=== PATIENT | female | born 1960 | race Caucasian/White ===

== ENCOUNTER → 2016-05-24 | Outpatient (CLI) | payer OTHER ==
--- NOTE | 2016-05-28 10:50 | US ---
Ultrasound left ankle History: Soft tissue mass left ankle. Previous trauma with bruising. Findings: The patient was originally evaluated on May 24, 2016 then returned on May 26, 2016 for evaluation with direct radiologist supervision. The Palpable nodule lateral left ankle about 4 cm above the lateral malleolus confirms a hypoechoic lesion that measures 4.5 x 3 x 2.5 mm. This is positioned in in the subcutaneous fat and separate from the peroneus longus and brevis muscle and tendon and separate from the underlying bone. There is no evidence of shadowing or internal color flow enhancement. Impression: 1. Heterogeneous hypoechoic lesion in the subcutaneous fat lateral to the distal left fibular shaft about 4 cm above the lateral malleolus. This probably represents small residual persistent hematoma. This could less likely represent neuroma of a superficial nerve branch. Clinical followup recommended. The results of this study were reviewed with the patient. JODIE
== END ==
LOC: BMCIMAGING 14:50
PROVIDERS: ATTEND Podiatrist Foot & Ankle Surgery
DX: M79.9 Soft tissue disorder, unspecified (principal)

== ENCOUNTER → 2016-05-26 | Outpatient (CLI) | payer OTHER ==
--- NOTE | 2016-05-26 11:17 | US ---
Ultrasound left ankle History: Soft tissue mass left ankle. Previous trauma with bruising. Findings: The patient was originally evaluated on May 24, 2016 then returned on May 26, 2016 f or evaluation with direct radiologist supervision. The Palpable nodule lateral left ankle about 4 cm above the lateral malleolus confirms a hypoechoic l esion that measures 4.5 x 3 x 2.5 mm. This is positioned in in the subcutaneous fat and separate from the peroneus longus and brevis muscle and tendon and separate from the underlying bone. There is no evidence of shadowing or internal color flow enhancement. Impression: 1. Heterogeneous hypoechoic lesion in the subcutaneous fat lateral to the distal left fibular shaft a bout 4 cm above the lateral malleolus. This probably represents small residual persistent hematoma. T his could less likely represent neuroma of a superficial nerve branch. Clinical followup recommended. The results of this study were reviewed with the patient.
== END ==
LOC: BMCIMAGING 10:37
PROVIDERS: ATTEND Podiatrist Foot & Ankle Surgery
DX: M79.89 Other specified soft tissue disorders (principal)

== ENCOUNTER → 2016-12-20 | Outpatient (CLI) | payer OTHER | LOC: FIMAGING 15:20 | PROVIDERS: ATTEND Nurse Practitioner Family | DX: R22.42 Localized swelling, mass and lump, left lower limb (principal); R93.6 Abnormal findings on diagnostic imaging of limbs ==

== ENCOUNTER → 2017-11-21 | Outpatient (CLI) | payer OTHER | LOC: BMCIMAGING 10:47 | PROVIDERS: ATTEND Family Medicine | DX: M25.531 Pain in right wrist (principal) ==

== ENCOUNTER 2017-12-02 15:43 | Emergency (ER) | payer OTHER ==
--- NOTE | 2017-12-02 16:00 | CPEKG ---
Heart Rate: 52 RR Interval: 1154 P-R Interval: 200 QRSD Interval: 82 QT Interval: 452 QTC Interval: 421 P Cameron: 77 QRS Cameron: 49 T Wave Cameron: 76 EKG Severity - NORMAL ECG - EKG Impression: SINUS RHYTHM Electronically Signed By: Arnoldo Beal 02-Dec-2017 16:08:51
--- NOTE | 2017-12-02 16:06 | EDPHY ---
H & P Stated Complaint: Chest pain this AM while in [place]. Took NTG and pain went away Time Seen by Provider: 12/02/17 15:54 HPI/ROS: CHIEF COMPLAINT: Resolved chest pain HISTORY OF PRESENT ILLNESS: The patient presents the ED after an episode of resolved chest pain. It occurred a o'clock today and lasted 2 min. It resolved with nitroglycerin. 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 She stated her pain was reminiscent of that event. The patient had been exercising prior to the event without any symptoms of exertional chest pain or shortness of breath. The patient is currently chest pain-free. She denies any pleuritic chest pain. She denies asymmetric calf pain or swelling. The patient has been on her regular antihypertensive medications. She denies any pain in her back. She denies any recent fever or infectious symptoms. She denies abdominal pain. REVIEW OF SYSTEMS: A comprehensive 10 point review of systems is otherwise negative aside from elements mentioned in the history of present illness. Source: Patient - Personal History Current Tetanus/Diphtheria Vaccine: Yes - Medical/Surgical History Hx Asthma: No Hx Chronic Respiratory Disease: No Hx Diabetes: No Hx Cardiac Disease: Yes Hx Renal Disease: No Hx Cirrhosis: No Hx Alcoholism: No Hx HIV/AIDS: No Hx Splenectomy or Spleen Trauma: No Other PMH: [place] 2014, [place], Link monitor, spontaneous coronary artery disection - Social History Smoking Status: Never smoked - Physical Exam Exam: General Appearance: Alert, no distress Eyes: Pupils equal and round no pallor or injection ENT, Mouth: Mucous membranes moist Respiratory: There are no retractions, lungs are clear to auscultation Cardiovascular: Regular rate and rhythm Gastrointestinal: Abdomen is soft and nontender, no masses, bowel sounds normal Neurological: A&O, normal motor function, normal sensory exam, normal cranial nerves Skin: Warm and dry, no rashes Musculoskeletal: Neck is supple nontender Extremities: symmetrical, full range of motion Constitutional: Initial Vital Signs Temperature (C) 36.7 C 12/02/17 15:45 Heart Rate 59 L 12/02/17 15:45 Respiratory Rate 16 12/02/17 15:45 Blood Pressure 108/65 12/02/17 15:45 O2 Sat (%) 95 12/02/17 15:45 O2 Delivery Mode Room Air Allergies/Adverse Reactions: bacitracin [From Neosporin ([id number])] Allergy (Verified 04/16/16 15:56) bacitracin zinc [From Neosporin ([id number])] Allergy (Verified 04/16/16 15: 56) latex Allergy (Verified 04/16/16 15:56) neomycin sulfate [From Neosporin ([id number])] Allergy (Verified 04/16/16 15: 56) polymyxin B [From Neosporin ([id number])] Allergy (Verified 04/16/16 15:56) Home Medications: Medication Instructions Recorded Aspirin 12/02/17 Bystolic 12/02/17 [place]-3 12/02/17 Medical Decision Making - Diagnostics EKG Interpretation: EKG: Complete interpretation has been separately recorded in the [facility] archive. Summary impression: Sinus rhythm, rate 52, no ischemic changes noted ED Course/Re-evaluation: The patient has a history of spontaneous coronary artery dissection or presents to the ED after brief episode of chest pain at 8 o'clock this morning which resolved with nitroglycerin. The patient's troponin is normal. Her EKG demonstrates no evidence of ischemia. I did destin Black from Cardiology. He recommends following up on Tuesday for a treadmill stress test. The patient will be advised not to perform strenuous activity until that time. She is advised to return to the ED should she developed any recurrent chest pain or shortness of breath. Differential Diagnosis: Differential diagnosis considered includes acute coronary syndrome, vaso spasm, myocardial infarction, coronary artery dissection - Data Points Laboratory Results: 12/02/17 15:58 POC Troponin I 0.00 ng/mL ng/mL (0.00-0.08) Point of Care Test Results: Chemistry 12/02/17 15:58 POC Troponin I 0.00 ng/mL ng/mL (0.00-0.08) Departure - Departure Disposition: Home, Routine, Self-Care Clinical Impression: Chest pain Condition: Good Instructions: Chest Pain (ED) Additional Instructions: 1. Return to the ED this weekend for the development of any recurrent chest pain. 2. Please follow up with [facility] on Tuesday for a treadmill stress test. 3. We recommend no heavy exertion until your treadmill stress test has been performed. Referrals: Kylie Walter MD [Medical Doctor] - As per Instructions
[2017-12-02 17:12] VITALS: BP 99/64
== END 2017-12-02 17:10 | disposition home or self-care (01) ==
DX: R07.9 Chest pain, unspecified (principal); I25.2 Old myocardial infarction; Z79.82 Long term (current) use of aspirin; Z91.040 Latex allergy status
CPT/HCPCS: 84484-PO

== ENCOUNTER → 2018-03-03 | Outpatient (CLI) | payer OTHER | LOC: FIMAGING 11:07 | PROVIDERS: ATTEND Internal Medicine | DX: Z12.31 Encounter for screening mammogram for malignant neoplasm of breast (principal) ==